=== PATIENT | female | born 1950 | race Caucasian/White ===

== ENCOUNTER 2019-01-19 23:26 | Inpatient (IN) | payer MEDICARE, MEDICAID | END 2019-01-25 16:05 | LOC: ER 23:26 → SUR 3N 01-20 01:25 → PCU 3S 01-20 10:03 | DX: J69.0 Pneumonitis due to inhalation of food and vomit (principal); J96.02 Acute respiratory failure with hypercapnia; Y95 Nosocomial condition ==